=== PATIENT | male | born 1990 | race Two or more races ===

== ENCOUNTER 2018-07-09 14:57 | Emergency (ER) | payer SELFPAY ==
[~2018-07-09] VITALS: Ht 165.1 cm; Wt 59.0 kg
[2018-07-09 15:32] VITALS: BP 106/65
[2018-07-09] MEDS ORDERED: LIDOCAINE 1%HCL (LOCAL ANESTH) 10 ML MDV ONE (15:56)
[2018-07-09] MEDS ORDERED: LIDOCAINE 1% HCL (LOCAL ANESTH.) INJ 20ML MDV IJ ONE (16:00)
[2018-07-09] MEDS ORDERED: cefTRIAXone SOD 1,000 MG VL IM ONE (16:15)
== END 2018-07-09 16:33 | disposition home or self-care (01) ==
LOC: ER 15:01
DX: L02.01 Cutaneous abscess of face (principal)
CPT/HCPCS: 96372; 99283; J0696; J2001

== ENCOUNTER 2018-07-11 09:15 | Emergency (ER) | payer SELFPAY ==
[~2018-07-11] VITALS: Ht 165.1 cm; Wt 59.0 kg
[2018-07-11 09:24] VITALS: BP 119/76
== END 2018-07-11 09:50 | disposition home or self-care (01) ==
LOC: ER 09:15
DX: L02.01 Cutaneous abscess of face (principal)

== ENCOUNTER 2018-10-12 12:58 | Emergency (ER) | payer SELFPAY ==
[~2018-10-12] VITALS: Ht 167.6 cm; Wt 53.5 kg
[2018-10-12 13:40] VITALS: BP 128/77
== END 2018-10-12 17:22 | disposition home or self-care (01) ==
LOC: ER 12:58
DX: R21 Rash and other nonspecific skin eruption (principal)